=== PATIENT | male | born 1995 | race Caucasian/White ===

== ENCOUNTER 2017-02-08 09:56 | Emergency (ER) | payer OTHER ==
[2017-02-08] MEDS ORDERED: ONDANSETRON DISINTEGRATING 4 MG TAB PO ONE (10:05)
[2017-02-08] MEDS ORDERED: HALOPERIDOL LACT 5 MG/ML INJ IVP ONE (10:27)
[2017-02-08] MEDS ORDERED: NS 1,000 ML IV ONE ×2 (10:28)
[2017-02-08 10:31] LABS: % IMMATURE GRANULYOCYTES 0.2 % (0.0-1.1); ABSOLUTE IMMATURE GRANULOCYTES 0.03 10^3/uL (0.00-0.10); ADD DIFF? NO; ADD MORPH? NO; ADD SCAN? NO; ATYPICAL LYMPHOCYTE FLAG 0 (0-99); FRAGMENT RBC FLAG 0 (0-99); HEMATOCRIT 46.4 % (40.0-51.0); HEMOGLOBIN 16.3 g/dL (13.7-17.5); LEFT SHIFT FLG 0 (0-99); LIPEMIA HEMOLYSIS FLAG 90 (0-99); MEAN CELL HEMOGLOBIN 30.5 pg (27.9-34.1); MEAN CELL HEMOGLOBIN CONCENTR. 35.1 g/dL (32.4-36.7); MEAN CELL VOLUME 86.7 fL (81.5-99.8); MEAN PLATELET VOLUME 10.7 fL (8.7-11.7); PLATELET CLUMPS FLAG 0 (0-99); PLATELET COUNT 320 10^3/uL (150-400); RED BLOOD CELL COUNT 5.35 10^6/uL (4.40-6.38); RED CELL DISTRIBUTION WIDTH 12.9 % (11.5-15.2)
--- NOTE | 2017-02-08 10:31 | EDPHY ---
H & P Stated Complaint: vomiting started mon am, hx same-cyclic, gen abd pain Time Seen by Provider: 02/08/17 10:22 HPI/ROS: CHIEF COMPLAINT: Recurrent vomiting and abdominal pain HISTORY OF PRESENT ILLNESS: The patient presents to the ED with a 2 day history of recurrent vomiting and mild abdominal pain. The patient has a history of cyclic vomiting syndrome for marijuana usage. The patient reports he has been hospitalized in the past for the symptoms. The patient reports typical complaints of abdominal pain and multiple episodes of nonbilious vomiting. The patient denies any fever, melena or hematochezia. The patient denies additional medical complaints such as fever, cough or congestion. The patient reports his symptoms are mild to moderate in nature. REVIEW OF SYSTEMS: A comprehensive 10 point review of systems is otherwise negative aside from elements mentioned in the history of present illness. Source: Patient Exam Limitations: No limitations - Personal History Current Tetanus/Diphtheria Vaccine: Yes Tetanus Vaccine Date: thinks he was updated in high school - Medical/Surgical History Hx Asthma: No Hx Chronic Respiratory Disease: No Hx Diabetes: No Hx Cardiac Disease: No Hx Renal Disease: No Hx Cirrhosis: No Hx Alcoholism: No Hx HIV/AIDS: No Hx Splenectomy or Spleen Trauma: No Other PMH: pmh- cyclic vomiting, marijuana smoker. psh- microdiscectomy L5S1 herniated disk - Social History Smoking Status: Current some day smoker Drug Use: Marijuana - Physical Exam Exam: General Appearance: Alert, no distress, well-appearing Eyes: Pupils equal and round no pallor or injection ENT, Mouth: Mucous membranes moist Respiratory: There are no retractions, lungs are clear to auscultation Cardiovascular: Regular rate and rhythm Gastrointestinal: Minimal epigastric tenderness, normal bowel sounds, no peritoneal symptoms Neurological: A&O, normal motor function, normal sensory exam, normal cranial nerves Skin: Warm and dry, no rashes Musculoskeletal: Neck is supple nontender Extremities: symmetrical, full range of motion Constitutional: Initial Vital Signs Temperature (C) 37.2 C 02/08/17 10:03 Heart Rate 55 L 02/08/17 10:03 Respiratory Rate 20 02/08/17 10:03 Blood Pressure 166/105 H 02/08/17 10:03 O2 Sat (%) 97 02/08/17 10:03 O2 Delivery Mode Room Air Allergies/Adverse Reactions: amoxicillin [Amoxicillin] Allergy (Intermediate, Verified 08/05/15 06:05) Hives Penicillins Allergy (Intermediate, Verified 08/05/15 06:05) Hives Home Medications: Medication Instructions Recorded Promethazine HCl [Phenergan 25mg 25 mg PO Q6 #15 tab 08/06/15 (*)] Ondansetron Odt [Zofran Odt 4 mg 4 - 8 mg PO Q6 PRN #24 tab 08/12/15 (*)] Ondansetron Odt [Zofran Odt] 4 mg PO Q4PRN PRN #20 tab 02/08/17 Medical Decision Making ED Course/Re-evaluation: The patient had an IV established. The patient received a L of normal saline. The patient received 4 mg of IV Zofran and 2.5 mg of IV Haldol. The patient had serial examinations in the ED for 2 hours. He had no recurrent vomiting. The patient's laboratory studies demonstrate a mild degree of dehydration but are otherwise unremarkable. The patient's lipase is normal without evidence of acute pancreatitis. The patient has no evidence of renal failure or other critical electrolyte abnormality. The patient was re-evaluated by myself at 12:45 p.m. and is feeling much better. He will be discharged home with a prescription for Zofran. The patient is advised to abstain from using marijuana. Differential Diagnosis: Differential diagnosis considered includes vomiting, dehydration, metabolic abnormality, cyclic vomiting syndrome - Data Points Laboratory Results: Laboratory Results 02/08/17 10:20 02/08/17 10:20 02/08/17 02/08/17 10:20 10:20 WBC 12.44 10^3/uL H 10^3/uL (3.80-9.50) RBC 5.35 10^6/uL 10^6/uL (4.40-6.38) Hgb 16.3 g/dL g/dL (13.7-17.5) Hct 46.4 % % (40.0-51.0) MCV 86.7 fL fL (81.5-99.8) MCH 30.5 pg pg (27.9-34.1) MCHC 35.1 g/dL g/dL (32.4-36.7) RDW 12.9 % % (11.5-15.2) Plt Count 320 10^3/uL 10^3/uL (150-400) MPV 10.7 fL fL (8.7-11.7) Neut % (Auto) 88.0 % H % (39.3-74.2) Lymph % (Auto) 7.6 % L % (15.0-45.0) [place] % (Auto) 4.1 % L % (4.5-13.0) Eos % (Auto) 0.0 % L % (0.6-7.6) Baso % (Auto) 0.1 % L % (0.3-1.7) Nucleat RBC Rel Count 0.0 % % (0.0-0.2) Absolute Neuts (auto) 10.94 10^3/uL H 10^3/uL (1.70-6.50) Absolute Lymphs (auto) 0.95 10^3/uL L 10^3/uL (1.00-3.00) Absolute Monos (auto) 0.51 10^3/uL 10^3/uL (0.30-0.80) Absolute Eos (auto) 0.00 10^3/uL L 10^3/uL (0.03-0.40) Absolute Basos (auto) 0.01 10^3/uL L 10^3/uL (0.02-0.10) Absolute Nucleated RBC 0.00 10^3/uL 10^3/uL (0-0.01) Immature Gran % 0.2 % % (0.0-1.1) Immature Gran # 0.03 10^3/uL 10^3/uL (0.00-0.10) Sodium 146 mEq/L H mEq/L (134-144) Potassium 3.9 mEq/L mEq/L (3.5-5.2) Chloride 106 mEq/L mEq/L (97-110) Carbon Dioxide 19 mEq/l L mEq/l (22-31) Anion Gap 21 mEq/L H mEq/L (8-16) BUN 16 mg/dL mg/dL (7-23) Creatinine 1.0 mg/dL mg/dL (0.7-1.3) Estimated GFR > 60 Glucose 138 mg/dL H mg/dL (70-100) Calcium 11.3 mg/dL H mg/dL (8.5-10.4) Phosphorus 3.2 mg/dL mg/dL (2.5-4.5) Medications Given: Discontinued Medications Haloperidol Lactate (Haldol Injection) 2.5 mg IVP EDNOW ONE Stop: 02/08/17 10:28 Last Admin: 02/08/17 11:11 Dose: 2.5 mg Sodium Chloride (Ns) 1,000 mls @ 0 mls/hr IV ONCE ONE PRN Reason: Wide Open Stop: 02/08/17 10:29 Last Admin: 02/08/17 11:11 Dose: 1,000 mls Sodium Chloride (Ns) 1,000 mls @ 0 mls/hr IV ONCE ONE PRN Reason: Wide Open Stop: 02/08/17 10:29 Last Admin: 02/08/17 10:10 Dose: 1,000 mls Ondansetron HCl (Zofran Odt) 4 mg PO EDNOW ONE Stop: 02/08/17 10:06 Last Admin: 02/08/17 10:06 Dose: 4 mg Departure - Departure Disposition: Home, Routine, Self-Care Clinical Impression: Cyclic vomiting syndrome, Dehydration, Nausea and vomiting Condition: Good Instructions: Acute Nausea and Vomiting (ED) Additional Instructions: 1. Zofran as needed for nausea. 2. I do recommend abstaining from marijuana as you clearly are developing symptoms consistent with cyclic vomiting syndrome. 3. Return to the ED for markedly worsening symptoms or other concerns. Referrals: NONE *PRIMARY CARE P,. [Primary Care Provider] - As per Instructions Prescriptions: Ondansetron Odt [Zofran Odt] 4 mg PO Q4PRN PRN #20 tab PRN Reason: For Nausea
[2017-02-08 10:56] LABS: ANION GAP 21 mEq/L (8-16); CALCIUM 11.3 mg/dL (8.5-10.4); CARBON DIOXIDE 19 mEq/l (22-31); CHLORIDE 106 mEq/L (97-110); GLOMERULAR FILTRATION RATE > 60; GLUCOSE 138 mg/dL (70-100); POTASSIUM 3.9 mEq/L (3.5-5.2); SODIUM 146 mEq/L (134-144)
[2017-02-08 12:34] VITALS: TEMP 97.9
[2017-02-08 13:16] VITALS: BP 130/58; PULSE 59; RESP 16; O2SAT 94
== END 2017-02-08 13:06 | disposition home or self-care (01) ==
DX: G43.A0 Cyclical vomiting, in migraine, not intractable (principal); E86.0 Dehydration; F17.200 Nicotine dependence, unspecified, uncomplicated
CPT/HCPCS: 96374

== ENCOUNTER 2017-02-09 16:08 | Emergency (ER) | payer OTHER ==
--- NOTE | 2017-02-09 16:22 | EDPHY ---
H & P Time Seen by Provider: 02/09/17 16:20 HPI/ROS: CHIEF COMPLAINT: Vomiting HISTORY OF PRESENT ILLNESS: This patient is a 21 year old male who presents to the Emergency Department complaining of persistent vomiting since Monday. He states that he has had cyclic vomiting for years with each episode lasting 4-7 days. He was seen in the ED yesterday for the same complaint and was given Zofran and Haldol which improved his symptoms. He was able to keep liquids down for 2 hours following discharge home. Today, he tells me that he is no longer to keep liquids down even with use of Zofran and feels dehydrated. He also reports associated sharp epigastric pain remaining constant throughout this episode. He denies chills, or additional complaints. He does smoke marijuana regularly. No additional pertinent medical history. REVIEW OF SYSTEMS: Constitutional: No fever, no chills Eyes: No visual changes ENT: No sore throat Respiratory: No cough, no shortness of breath Cardiac: No chest pain Gastrointestinal: +nausea, +vomiting, +abdominal pain Genitourinary: No hematuria, no dysuria Musculoskeletal: No leg pain or swelling Skin: No rash Neurological: No headache, no numbness, no weakness Psychiatric: No depression Past Medical/Surgical History: Prior medical records reviewed by myself, including visit to the ED yesterday for the same complaint. PMH includes: cyclic vomiting, microdiscectomy L5S1 herniated disc. Social History: Smokes marijuana regularly. 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 Smoking Status: Current some day smoker Physical Exam: General Appearance: Alert, no distress Eyes: Pupils equal and round, no conjunctival pallor or injection ENT, Mouth: Mucous membranes moist Neck: Normal inspection Respiratory: Lungs are clear to auscultation Cardiovascular: Regular rate and rhythm Gastrointestinal: Abdomen is soft and non- tender Neurological: A&O, nonfocal, normal gait Skin: Warm and dry, no rash Extremities: Nontender, no pedal edema Psychiatric: Mood and affect normal Constitutional: Initial Vital Signs Temperature (C) 36.9 C 02/09/17 16:14 Heart Rate 76 02/09/17 16:14 Respiratory Rate 14 02/09/17 16:14 Blood Pressure 151/84 H 02/09/17 16:14 O2 Sat (%) 96 02/09/17 16:14 O2 Delivery Mode Room Air Allergies/Adverse Reactions: amoxicillin [Amoxicillin] Allergy (Intermediate, Verified 02/11/17 14:24) Hives Penicillins Allergy (Intermediate, Verified 02/11/17 14:24) Hives Home Medications: Medication Instructions Recorded Promethazine HCl [Phenergan 25mg 25 mg PO Q6 #15 tab 08/06/15 (*)] Ondansetron Odt [Zofran Odt 4 mg 4 - 8 mg PO Q6 PRN #24 tab 08/12/15 (*)] Ondansetron Odt [Zofran Odt] 4 mg PO Q4PRN PRN #20 tab 02/08/17 Promethazine HCl [Phenergan Rectal] 25 mg RI Q6 PRN #10 suppr 02/09/17 Medical Decision Making ED Course/Re-evaluation: This patient with known history of cyclic vomiting syndrome prevents with intractable vomiting beginning on Monday for which he was previously evaluated in the ED on 02/08. Will provide symptomatic treatment and recommend gastroenterology follow-up. IV established. 25mg IV Benadryl, 10mg IV Reglan, 5mg IV Haldol, and 2L IV NS administered. Will monitor the patient in the ED until symptoms improve. 1830: On reevaluation, the patient feels much improved. He reports no nausea or vomiting. Tolerates oral fluids well. I discussed with him my recommendation that he follow-up with gastroenterology to evaluate cyclic vomiting syndrome and discuss preventative treatments. He is agreeable to this. - Data Points Medications Given: Discontinued Medications Diphenhydramine HCl (Benadryl Injection) 25 mg IVP EDNOW ONE Stop: 02/09/17 16:31 Last Admin: 02/09/17 16:57 Dose: 25 mg Haloperidol Lactate (Haldol Injection) 5 mg IVP EDNOW ONE Stop: 02/09/17 16:33 Last Admin: 02/09/17 16:58 Dose: 5 mg Sodium Chloride (Ns) 1,000 mls @ 0 mls/hr IV ONCE ONE PRN Reason: Wide Open Stop: 02/09/17 16:31 Last Admin: 02/09/17 16:57 Dose: 1,000 mls Sodium Chloride (Ns) 1,000 mls @ 0 mls/hr IV ONCE ONE PRN Reason: Wide Open Stop: 03/23/17 16:31 Last Admin: 02/09/17 17:28 Dose: 1,000 mls Metoclopramide HCl (Reglan Injection) 10 mg IVP EDNOW ONE Stop: 02/09/17 16:31 Last Admin: 02/09/17 16:57 Dose: 10 mg Departure - Departure Disposition: Home, Routine, Self-Care Clinical Impression: Cyclic vomiting syndrome Condition: Good Instructions: Acute Nausea and Vomiting (ED) Additional Instructions: 1. Follow-up with a administrative job titles to further evaluate your cyclic vomiting syndrome and address prevention of future episodes. 2. We recommend quitting marijuana use as discussed. 3. Take Zofran as needed for nausea and vomiting. 4. Return to the Emergency Department if you experience uncontrollable vomiting , weakness, lightheadedness, worsening pain, or other serious concerns. Referrals: Mehrdad Beasley MD [Medical Doctor] - As per Instructions Prescriptions: Promethazine HCl [Phenergan Rectal] 25 mg RI Q6 PRN #10 suppr PRN Reason: nausea Report Scribed for: Jenny Delgado Report Scribed by: Ivy Elkins Date of Report: 02/09/17 Time of Report: 16:22 Physician Review and Approval Statement: 02/09/17 16:22 Portions of this note were transcribed by a medical oncologist. I personally performed a history, physical exam, medical decision making, and confirmed accuracy of information the transcribed note.
[2017-02-09] MEDS ORDERED: METOCLOPRAMIDE 10 MG/2 ML VIAL IVP ONE (16:30)
[2017-02-09] MEDS ORDERED: NS 1,000 ML IV ONE ×2 (16:30)
[2017-02-09] MEDS ORDERED: HALOPERIDOL LACT 5 MG/ML INJ IVP ONE (16:32)
[2017-02-09] MEDS ORDERED: HALOPERIDOL LACT 5 MG/ML INJ ONE (16:45)
[2017-02-09] MEDS ORDERED: METOCLOPRAMIDE 10 MG/2 ML VIAL ONE (16:46)
[2017-02-09 18:41] VITALS: BP 122/71; PULSE 73; RESP 16; TEMP 97.9; O2SAT 97
== END 2017-02-09 18:57 | disposition home or self-care (01) ==
DX: G43.A0 Cyclical vomiting, in migraine, not intractable (principal); F17.200 Nicotine dependence, unspecified, uncomplicated
CPT/HCPCS: 96374; J1200; J2765

== ENCOUNTER 2017-02-11 14:23 | Emergency (ER) | payer OTHER ==
[2017-02-11 14:29] VITALS: RESP 18
--- NOTE | 2017-02-11 14:34 | EDPHY ---
H & P Stated Complaint: cyclical vomiting Time Seen by Provider: 02/11/17 14:33 HPI/ROS: CHIEF COMPLAINT: Nausea, vomiting, abdominal pain. HISTORY OF PRESENT ILLNESS: The patient is a 21-year-old male with a history of cyclic vomiting who presents with nausea, vomiting, and abdominal pain since Monday (5 days). This is the third time he has been seen in the ED for this and these symptoms have not changed since then. He was last seen 2 days ago and has vomited over 30 times since then. His abdominal pain is worse after he vomits and radiates to his back. He admits associated lightheadedness, diarrhea, cough , and headache. He has received Haldol previously for these symptoms. He also developed a rash on the palm of his hands after the vomiting began. He has not had this before. No fever, chills, chest pain, shortness of breath, palpitations , urinary complaints. He has not used any marijuana over the past 2 days. Patient reports spending prolonged periods of time in the shower. REVIEW OF SYSTEMS: Aside from elements discussed in the HPI, a comprehensive 10-point review of systems was reviewed and is negative. PAST MEDICAL HISTORY: Cyclic vomiting, disc herniation. SOCIAL HISTORY: Smokes marijuana, no tobacco use. VITAL SIGNS: Reviewed by me GENERAL: Well-developed, well-nourished, resting comfortably in no respiratory distress. HEENT: Atraumatic. Eyes: No icterus, no injection. Mouth: moist mucous membranes. No erythema or lesions. Neck: supple with no adenopathy. LUNGS: Clear to auscultation bilaterally, no wheezes, rhonchi or rales. CARDIAC: Regular rate and rhythm, no rubs, murmurs or gallops. ABDOMEN: Soft, nontender, nondistended, bowel sounds normal. BACK: No CVA tenderness. EXTREMITIES: No trauma. No edema. Range of motion is normal throughout. Diffuse erythroderma on lower extremities below his shorts line. Purple rash on palms of hands. No petechiae. No urticaria. No target lesions. NEURO: Alert and oriented, grossly nonfocal. SKIN: Warm and dry, no rash. PSYCHIATRIC: Normal mentation, no agitation. Portions of this note were transcribed by a medical assistant secretary. I personally performed a history, physical exam, medical decision making, and confirmed accuracy of information the transcribed note. Source: Patient Exam Limitations: No limitations - Personal History Current Tetanus/Diphtheria Vaccine: Yes Tetanus Vaccine Date: thinks he was updated in high school - Medical/Surgical History Hx Asthma: No Hx Chronic Respiratory Disease: No Hx Diabetes: No Hx Cardiac Disease: No Hx Renal Disease: No Hx Cirrhosis: No Hx Alcoholism: No Hx HIV/AIDS: No Hx Splenectomy or Spleen Trauma: No Other PMH: pmh- cyclic vomiting, marijuana smoker. psh- microdiscectomy L5S1 herniated disk - Social History Smoking Status: Current some day smoker Constitutional: Initial Vital Signs Temperature (C) 36.3 C 02/11/17 14:26 Heart Rate 53 L 02/11/17 14:26 Respiratory Rate 18 02/11/17 14:26 Blood Pressure 160/92 H 02/11/17 14:26 O2 Sat (%) 96 02/11/17 14:26 O2 Delivery Mode Room Air Allergies/Adverse Reactions: amoxicillin [Amoxicillin] Allergy (Intermediate, Verified 02/11/17 14:24) Hives Penicillins Allergy (Intermediate, Verified 02/11/17 14:24) Hives Home Medications: Medication Instructions Recorded Promethazine HCl [Phenergan 25mg 25 mg PO Q6 #15 tab 08/06/15 (*)] Ondansetron Odt [Zofran Odt 4 mg 4 - 8 mg PO Q6 PRN #24 tab 08/12/15 (*)] Ondansetron Odt [Zofran Odt] 4 mg PO Q4PRN PRN #20 tab 02/08/17 Promethazine HCl [Phenergan Rectal] 25 mg NV Q6 PRN #10 suppr 02/09/17 Medical Decision Making ED Course/Re-evaluation: An IV was established and labs ordered. 1L IV saline administered for hydration. 10mg IV Ketamine administered for abdominal pain. 1539: Reassessed patient. He is feeling much better. We discussed lab work. He will receive the rest of his fluids before being PO challenged. 1604: Reassessed patient. He is sipping apple juice but is nauseated. He will receive another liter of IV saline along with 25mg PO Phenergan. Patient was re-evaluated after his 2nd L and Phenergan. He is tolerating p. o.. No vomiting in the emergency department. Patient does have a prescription for Phenergan which she was provided with an his last ED visit. He has not filled this. I encouraged him to use both Phenergan and Zofran as needed for recurrent vomiting. We advised him to discontinue marijuana. Differential Diagnosis: Differential diagnosis of the patient's nausea and vomiting was considered including but not limited to gastroenteritis, gastritis, cannabis hyperemesis syndrome, cyclic vomiting, alcohol intoxication, withdrawal symptoms, intraabdominal processes including appendicitis, pancreatitis, bowel obstruction and medication side effect. - Data Points Laboratory Results: Laboratory Results 02/11/17 14:35 02/11/17 14:35 02/11/17 02/11/17 14:35 14:35 WBC 9.90 10^3/uL H 10^3/uL (3.80-9.50) RBC 5.31 10^6/uL 10^6/uL (4.40-6.38) Hgb 16.7 g/dL g/dL (13.7-17.5) Hct 45.9 % % (40.0-51.0) MCV 86.4 fL fL (81.5-99.8) MCH 31.5 pg pg (27.9-34.1) MCHC 36.4 g/dL g/dL (32.4-36.7) RDW 12.6 % % (11.5-15.2) Plt Count 282 10^3/uL 10^3/uL (150-400) MPV 10.4 fL fL (8.7-11.7) Neut % (Auto) 74.1 % % (39.3-74.2) Lymph % (Auto) 13.0 % L % (15.0-45.0) [place] % (Auto) 12.4 % % (4.5-13.0) Eos % (Auto) 0.0 % L % (0.6-7.6) Baso % (Auto) 0.2 % L % (0.3-1.7) Nucleat RBC Rel Count 0.0 % % (0.0-0.2) Absolute Neuts (auto) 7.33 10^3/uL H 10^3/uL (1.70-6.50) Absolute Lymphs (auto) 1.29 10^3/uL 10^3/uL (1.00-3.00) Absolute Monos (auto) 1.23 10^3/uL H 10^3/uL (0.30-0.80) Absolute Eos (auto) 0.00 10^3/uL L 10^3/uL (0.03-0.40) Absolute Basos (auto) 0.02 10^3/uL 10^3/uL (0.02-0.10) Absolute Nucleated RBC 0.00 10^3/uL 10^3/uL (0-0.01) Immature Gran % 0.3 % % (0.0-1.1) Immature Gran # 0.03 10^3/uL 10^3/uL (0.00-0.10) Sodium 136 mEq/L mEq/L (134-144) Potassium 3.4 mEq/L L mEq/L (3.5-5.2) Chloride 97 mEq/L mEq/L (97-110) Carbon Dioxide 21 mEq/l L mEq/l (22-31) Anion Gap 18 mEq/L H mEq/L (8-16) BUN 9 mg/dL mg/dL (7-23) Creatinine 0.9 mg/dL mg/dL (0.7-1.3) Estimated GFR > 60 Glucose 100 mg/dL mg/dL (70-100) Calcium 10.3 mg/dL mg/dL (8.5-10.4) Total Bilirubin 1.4 mg/dL mg/dL (0.1-1.4) Conjugated Bilirubin 0.5 mg/dL mg/dL (0.0-0.5) Unconjugated Bilirubin 0.9 mg/dL mg/dL (0.0-1.1) AST 82 IU/L H IU/L (17-59) ALT 46 IU/L IU/L (21-72) Alkaline Phosphatase 105 IU/L IU/L (38-126) Total Protein 7.8 g/dL g/dL (6.3-8.2) Albumin 4.9 g/dL g/dL (3.5-5.0) Lipase 67.0 IU/L IU/L (23-300) Medications Given: Discontinued Medications Sodium Chloride (Ns) 1,000 mls @ 0 mls/hr IV ONCE ONE PRN Reason: Wide Open Stop: 02/11/17 14:47 Last Admin: 02/11/17 15:05 Dose: 1,000 mls Sodium Chloride (Ns) 1,000 mls @ 0 mls/hr IV ONCE ONE PRN Reason: Wide Open Stop: 02/11/17 16:07 Last Admin: 02/11/17 16:09 Dose: 1,000 mls Ketamine HCl (Ketamine) 10 mg IVP EDNOW ONE Stop: 02/11/17 14:47 Last Admin: 02/11/17 15:06 Dose: 10 mg Promethazine HCl (Phenergan) 25 mg PO EDNOW ONE Stop: 02/11/17 16:07 Last Admin: 02/11/17 16:09 Dose: 25 mg Departure - Departure Disposition: Home, Routine, Self-Care Clinical Impression: Cannabinoid hyperemesis syndrome Cyclic vomiting syndrome Qualifiers: Vomiting Intractability: non-intractable Nausea presence: with nausea Qualified Code(s): G43.A0 - Cyclical vomiting, not intractable Abdominal pain Qualifiers: Abdominal location: epigastric Qualified Code(s): R10.13 - Epigastric pain Condition: Good Instructions: Acute Nausea and Vomiting (ED), Abdominal Pain (ED) Additional Instructions: Drink plenty of clear fluids. Advance diet slowly as tolerable over the next 24 hours. Follow up with a primary care provider this week for reevaluation. If you need one you have been provided the telephone number of the on-call provider. Return to the emergency department if you experience any serious worsening of condition. Referrals: Jimmy Melgar MD [Medical Doctor] - As per Instructions Report Scribed for: Genesis Rashid Report Scribed by: Aftab Mendes Date of Report: 02/11/17 Time of Report: 14:34
[2017-02-11] MEDS ORDERED: NS 1,000 ML IV ONE ×2 (14:46→16:06)
[2017-02-11] MEDS ORDERED: KETAMINE 100 MG/10 ML SYR IVP ONE (14:46)
[2017-02-11 14:50] LABS: % IMMATURE GRANULYOCYTES 0.3 % (0.0-1.1); ABSOLUTE IMMATURE GRANULOCYTES 0.03 10^3/uL (0.00-0.10); ADD DIFF? NO; ADD MORPH? NO; ADD SCAN? NO; ATYPICAL LYMPHOCYTE FLAG 10 (0-99); FRAGMENT RBC FLAG 0 (0-99); HEMATOCRIT 45.9 % (40.0-51.0); HEMOGLOBIN 16.7 g/dL (13.7-17.5); LEFT SHIFT FLG 0 (0-99); LIPEMIA HEMOLYSIS FLAG 90 (0-99); MEAN CELL HEMOGLOBIN 31.5 pg (27.9-34.1); MEAN CELL HEMOGLOBIN CONCENTR. 36.4 g/dL (32.4-36.7); MEAN CELL VOLUME 86.4 fL (81.5-99.8); MEAN PLATELET VOLUME 10.4 fL (8.7-11.7); PLATELET CLUMPS FLAG 10 (0-99); PLATELET COUNT 282 10^3/uL (150-400); RED BLOOD CELL COUNT 5.31 10^6/uL (4.40-6.38); RED CELL DISTRIBUTION WIDTH 12.6 % (11.5-15.2)
[2017-02-11 15:05] LABS: ALANINE AMINOTRANSFERASE 46 IU/L (21-72); ALBUMIN 4.9 g/dL (3.5-5.0); ALKALINE PHOSPHATASE 105 IU/L (38-126); ANION GAP 18 mEq/L (8-16); ASPARTATE AMINOTRANSFERASE 82 IU/L (17-59); BILIRUBIN,TOTAL 1.4 mg/dL (0.1-1.4); BILIRUBIN-CONJUGATED 0.5 mg/dL (0.0-0.5); BILIRUBIN-UNCONJUGATED 0.9 mg/dL (0.0-1.1); CALCIUM 10.3 mg/dL (8.5-10.4); CARBON DIOXIDE 21 mEq/l (22-31); CHLORIDE 97 mEq/L (97-110); CREATININE 0.9 mg/dL (0.7-1.3); GLOMERULAR FILTRATION RATE > 60; GLUCOSE 100 mg/dL (70-100); POTASSIUM 3.4 mEq/L (3.5-5.2); SODIUM 136 mEq/L (134-144); TOTAL PROTEIN 7.8 g/dL (6.3-8.2)
[2017-02-11] MEDS ORDERED: PROMETHAZINE HCL 25 MG TAB PO ONE (16:06)
[2017-02-11] MEDS ORDERED: PROMETHAZINE HCL 25 MG TAB ONE (16:07)
[2017-02-11 17:54] VITALS: BP 132/86; PULSE 72; TEMP 98.1; O2SAT 97
== END 2017-02-11 17:55 | disposition home or self-care (01) ==
DX: G43.A0 Cyclical vomiting, in migraine, not intractable (principal); R10.13 Epigastric pain; F12.10 Cannabis abuse, uncomplicated; F17.200 Nicotine dependence, unspecified, uncomplicated
CPT/HCPCS: 96374

== ENCOUNTER 2017-02-17 10:10 | Emergency (ER) | payer OTHER ==
[2017-02-17 10:14] VITALS: TEMP 98.1
[2017-02-17] MEDS ORDERED: ONDANSETRON 4 MG/2 ML VIAL IVP ONE (10:26)
[2017-02-17] MEDS ORDERED: HALOPERIDOL LACT 5 MG/ML INJ IVP ONE (10:26)
--- NOTE | 2017-02-17 10:32 | EDPHY ---
H & P Stated Complaint: cannaboid cyclical vomiting/freq visits this month Time Seen by Provider: 02/17/17 10:15 HPI/ROS: CHIEF COMPLAINT: Nausea vomiting times 12 days HISTORY OF PRESENT ILLNESS: 21-year-old male history of cyclic vomiting syndrome, possible cannabis hyperemesis syndrome, familiar to emergency department staff, last seen emergency department 7 days ago for same complaint which time he was given ketamine, hydration discharge. He says primary care provider Dr. iJmmy Melgar 4 days ago a.m. was prescribed no medications including: Zofran 8 mg ODT, pantoprazole , clonazepam, Phenergan suppository. He continues to feel intermittent nausea and will typically wake and vomit 8-12 times. He states however that overall he is feeling improvement and feels that his overall symptomatology has improved. No abdominal pain. Currently complaining of mild nausea. No back or flank pain. No urinary abnormality. No bowel movement abnormality. No melena or hematochezia. No hematemesis PRIMARY CARE PROVIDER: Dr. Jimmy Melgar REVIEW OF SYSTEMS: A ten point review of systems was performed and is negative with the exception of the items mentioned in the HPI PAST MEDICAL & SURGICAL HISTORY: Cyclic vomiting. SOCIAL HISTORY: Regular marijuana use. PHYSICAL EXAM (Prior to examination, patient consented to physical exam, hands were washed and my usual and customary physical exam procedures followed) 1) GENERAL: Well-developed, well-nourished, alert and oriented. Appears nontoxic . 2) HEAD: Normocephalic, atraumatic 3) HEENT: Pupils equal, round, reactive to light bilaterally. Sclera anicteric. Nasopharynx, oropharynx, clear, no lesions, dry mucous membranes. 4) NECK: Full range of motion, no meningeal signs. 5) LUNGS: Clear auscultation bilaterally, no wheezes, no rhonchi, no retractions. 6) HEART: Regular rate and rhythm, no murmur, no heave, no gallop. 7) ABDOMEN: No guarding, no rebound, no focal tenderness, negative McBurney's, negative Lopez's, negative Rovsing's, negative peritoneal sign, I am unable to elicit any abdominal pain 8) MUSCULOSKELETAL: Moving all extremities, no focal areas of tenderness, no obvious trauma. No peripheral edema or discoloration. 9) BACK: No CVA tenderness, no midline vertebral tenderness, no fluctuance, no step-off, no obvious trauma, no visual or palpable abnormality. 10) SKIN: No rash, no petechiae. 11) Psychiatric: Patient is oriented X 3, there is no agitation. DIFFERENTIAL DIAGNOSIS: in no particular include but limited to acute appendicitis, bowel obstruction, cyclic vomiting syndrome exacerbation, cannabis hyperemesis syndrome, - Personal History Current Tetanus/Diphtheria Vaccine: Yes Tetanus Vaccine Date: thinks he was updated in high school - Medical/Surgical History Hx Asthma: No Hx Chronic Respiratory Disease: No Hx Diabetes: No Hx Cardiac Disease: No Hx Renal Disease: No Hx Cirrhosis: No Hx Alcoholism: No Hx HIV/AIDS: No Hx Splenectomy or Spleen Trauma: No Other PMH: pmh- cyclic vomiting, marijuana smoker. psh- microdiscectomy L5S1 herniated disk - Social History Smoking Status: Current some day smoker Constitutional: Initial Vital Signs Temperature (C) 36.7 C 02/17/17 10:12 Heart Rate 70 02/17/17 10:12 Respiratory Rate 19 02/17/17 10:12 Blood Pressure 141/97 H 02/17/17 10:12 O2 Sat (%) 98 02/17/17 10:12 O2 Delivery Mode Room Air Allergies/Adverse Reactions: amoxicillin [Amoxicillin] Allergy (Intermediate, Verified 02/17/17 10:11) Hives Penicillins Allergy (Intermediate, Verified 02/17/17 10:11) Hives Home Medications: Medication Instructions Recorded Promethazine HCl [Phenergan 25mg 25 mg PO Q6 #15 tab 08/06/15 (*)] Ondansetron Odt [Zofran Odt 4 mg 4 - 8 mg PO Q6 PRN #24 tab 08/12/15 (*)] Ondansetron Odt [Zofran Odt] 4 mg PO Q4PRN PRN #20 tab 02/08/17 Promethazine HCl [Phenergan Rectal] 25 mg RI Q6 PRN #10 suppr 02/09/17 CLONAZEPAM 02/17/17 Ondansetron [Zofran Odt] 8 mg PO Q6 PRN #20 tab.rapdis 02/17/17 Medical Decision Making ED Course/Re-evaluation: 10:30 a.m.: Old medical records reviewed by myself. Patient is feeling improvement verses ER visit a few days ago however he is complaining of feeling dehydrated and continue bowel nausea. Plan will be IV hydration, diagnostic studies, antiemetic and re-evaluate 10:54 a.m.: Patient grounds person light stating that he feels "tingly". I re- examined the patient at this time, he is breathing comfortably, has a nontender abdomen, no rash. Doubt allergic reaction. Will observe patient 11:25 a.m.: Re-evaluation. The self-described "tingly" sensation has resolved. He would like to attempt oral fluid challenge. Noted to be hypokalemic at 3.1 more than likely secondary to vomiting.. Will be given oral potassium supplementation and re-evaluated. 12:20 p.m.: Re-evaluation, sleeping, easily woken. He has been tolerating oral intake in the emergency department. Re-examined his abdomen at this time which is soft no guarding or rebound no McBurney's point pain. I think that acute surgical abdominal pathology such as acute appendicitis, bowel obstruction , acute cholecystitis, less than likely in this patient at this time. He has an established relationship with Dr. Jimmy Melgar. I recommend he follow up with Dr. Sergey [facility] as well. Usual and customary abdominal precautions provided. Given refill of his Zofran. - Data Points Laboratory Results: Laboratory Results 02/17/17 10:32 02/17/17 10:32 02/17/17 02/17/17 10:32 10:32 WBC 12.36 10^3/uL H 10^3/uL (3.80-9.50) RBC 5.98 10^6/uL 10^6/uL (4.40-6.38) Hgb 18.7 g/dL H g/dL (13.7-17.5) Hct 51.5 % H % (40.0-51.0) MCV 86.1 fL fL (81.5-99.8) MCH 31.3 pg pg (27.9-34.1) MCHC 36.3 g/dL g/dL (32.4-36.7) RDW 12.8 % % (11.5-15.2) Plt Count 311 10^3/uL 10^3/uL (150-400) MPV 10.4 fL fL (8.7-11.7) Neut % (Auto) 71.3 % % (39.3-74.2) Lymph % (Auto) 18.6 % % (15.0-45.0) [place] % (Auto) 9.0 % % (4.5-13.0) Eos % (Auto) 0.3 % L % (0.6-7.6) Baso % (Auto) 0.2 % L % (0.3-1.7) Nucleat RBC Rel Count 0.0 % % (0.0-0.2) Absolute Neuts (auto) 8.81 10^3/uL H 10^3/uL (1.70-6.50) Absolute Lymphs (auto) 2.30 10^3/uL 10^3/uL (1.00-3.00) Absolute Monos (auto) 1.11 10^3/uL H 10^3/uL (0.30-0.80) Absolute Eos (auto) 0.04 10^3/uL 10^3/uL (0.03-0.40) Absolute Basos (auto) 0.02 10^3/uL 10^3/uL (0.02-0.10) Absolute Nucleated RBC 0.00 10^3/uL 10^3/uL (0-0.01) Immature Gran % 0.6 % % (0.0-1.1) Immature Gran # 0.08 10^3/uL 10^3/uL (0.00-0.10) Sodium 134 mEq/L mEq/L (134-144) Potassium 3.1 mEq/L L mEq/L (3.5-5.2) Chloride 92 mEq/L L mEq/L (97-110) Carbon Dioxide 25 mEq/l mEq/l (22-31) Anion Gap 17 mEq/L H mEq/L (8-16) BUN 15 mg/dL mg/dL (7-23) Creatinine 1.0 mg/dL mg/dL (0.7-1.3) Estimated GFR > 60 Glucose 94 mg/dL mg/dL (70-100) Calcium 10.2 mg/dL mg/dL (8.5-10.4) Total Bilirubin 1.8 mg/dL H mg/dL (0.1-1.4) Conjugated Bilirubin 0.5 mg/dL mg/dL (0.0-0.5) Unconjugated Bilirubin 1.3 mg/dL H mg/dL (0.0-1.1) AST 77 IU/L H IU/L (17-59) ALT 51 IU/L IU/L (21-72) Alkaline Phosphatase 104 IU/L IU/L (38-126) Creatine Kinase 66 IU/L IU/L (0-224) Total Protein 7.9 g/dL g/dL (6.3-8.2) Albumin 5.1 g/dL H g/dL (3.5-5.0) Lipase 174.0 IU/L IU/L (23-300) Medications Given: Discontinued Medications Haloperidol Lactate (Haldol Injection) 2.5 mg IVP EDNOW ONE Stop: 02/17/17 10:27 Last Admin: 02/17/17 10:37 Dose: 2.5 mg Ondansetron HCl (Zofran) 4 mg IVP EDNOW ONE Stop: 02/17/17 10:27 Last Admin: 02/17/17 10:37 Dose: 4 mg Potassium Chloride (Klor Packets) 20 meq PO EDNOW ONE Stop: 02/17/17 11:26 Last Admin: 02/17/17 12:20 Dose: 20 meq Departure - Departure Disposition: Home, Routine, Self-Care Clinical Impression: Nausea and vomiting Qualifiers: Vomiting type: cyclical vomiting Vomiting Intractability: non-intractable Qualified Code(s): G43.A0 - Cyclical vomiting, not intractable Condition: Good Instructions: Acute Nausea and Vomiting (ED) Additional Instructions: Seek immediate medical attention if you develop new or worsening symptoms, if you develop fevers, chills, inability to tolerate oral intake or any other symptoms that concerns you. Referrals: Jimmy Melgar MD [Primary Care Provider] - 2-3 days, call for appt. Sergey White [place] [place] - 5-7 days, call for appt. (Dr. Sergey White is a tnt line supervisor) Prescriptions: Ondansetron [Zofran Odt] 8 mg PO Q6 PRN #20 tab.rapdis PRN Reason: Nausea/Vomiting, Use 1st
[2017-02-17 10:40] LABS: % IMMATURE GRANULYOCYTES 0.6 % (0.0-1.1); ABSOLUTE IMMATURE GRANULOCYTES 0.08 10^3/uL (0.00-0.10); ADD DIFF? NO; ADD MORPH? NO; ADD SCAN? NO; ATYPICAL LYMPHOCYTE FLAG 20 (0-99); FRAGMENT RBC FLAG 0 (0-99); HEMATOCRIT 51.5 % (40.0-51.0); HEMOGLOBIN 18.7 g/dL (13.7-17.5); LEFT SHIFT FLG 0 (0-99); LIPEMIA HEMOLYSIS FLAG 90 (0-99); MEAN CELL HEMOGLOBIN 31.3 pg (27.9-34.1); MEAN CELL HEMOGLOBIN CONCENTR. 36.3 g/dL (32.4-36.7); MEAN CELL VOLUME 86.1 fL (81.5-99.8); MEAN PLATELET VOLUME 10.4 fL (8.7-11.7); PLATELET CLUMPS FLAG 0 (0-99); PLATELET COUNT 311 10^3/uL (150-400); RED BLOOD CELL COUNT 5.98 10^6/uL (4.40-6.38); RED CELL DISTRIBUTION WIDTH 12.8 % (11.5-15.2)
[2017-02-17 11:04] LABS: ALANINE AMINOTRANSFERASE 51 IU/L (21-72); ALBUMIN 5.1 g/dL (3.5-5.0); ALKALINE PHOSPHATASE 104 IU/L (38-126); ANION GAP 17 mEq/L (8-16); ASPARTATE AMINOTRANSFERASE 77 IU/L (17-59); BILIRUBIN,TOTAL 1.8 mg/dL (0.1-1.4); BILIRUBIN-CONJUGATED 0.5 mg/dL (0.0-0.5); BILIRUBIN-UNCONJUGATED 1.3 mg/dL (0.0-1.1); CALCIUM 10.2 mg/dL (8.5-10.4); CARBON DIOXIDE 25 mEq/l (22-31); CHLORIDE 92 mEq/L (97-110); GLOMERULAR FILTRATION RATE > 60; GLUCOSE 94 mg/dL (70-100); POTASSIUM 3.1 mEq/L (3.5-5.2); SODIUM 134 mEq/L (134-144); TOTAL PROTEIN 7.9 g/dL (6.3-8.2)
[2017-02-17] MEDS ORDERED: POTASSIUM CL 20 MEQ PKT PO ONE (11:25)
[2017-02-17 11:59] VITALS: RESP 16; O2SAT 96
[2017-02-17 12:43] VITALS: BP 136/101; PULSE 75
== END 2017-02-17 12:42 | disposition home or self-care (01) ==
DX: G43.A0 Cyclical vomiting, in migraine, not intractable (principal); F17.200 Nicotine dependence, unspecified, uncomplicated
CPT/HCPCS: 96374; J2405